=== PATIENT | female | born 1995 | race Caucasian/White ===

== ENCOUNTER 2023-12-03 02:25 | Emergency (ER) | payer OTHER ==
[~2023-12-03] VITALS: Ht 160 cm; Wt 62.0 kg
[2023-12-03 02:30] VITALS: O2SAT 99
[2023-12-03 02:36] VITALS: BP 120/77; PULSE 91; RESP 18; TEMP 98.5; O2SAT 100
[2023-12-03 03:35] LABS: CLARITY URINE CLEAR (CLEAR); COLOR URINE YELLOW (YELLOW); GLUCOSE URINE NEGATIVE (NEGATIVE); KETONES URINE NEGATIVE (NEGATIVE); LEUKOCYTE ESTERASE URINE NEGATIVE (NEGATIVE); NITRITE URINE NEGATIVE (NEGATIVE); OCCULT BLOOD URINE NEGATIVE (NEGATIVE); PH URINE 6.5 (4.5-8.0); PROTEIN URINE NEGATIVE (NEGATIVE); SPECIFIC GRAVITY URINE 1.012 (1.005-1.030); UROBILINOGEN URINE 0.2 E.U./dL (0.2-1.0)
[2023-12-03] MEDS ORDERED: CLOT45CR62 VG (04:12)
== END 2023-12-03 05:13 | disposition home or self-care (01) ==
LOC: ER 02:38
DX: N76.0 Acute vaginitis (principal)
CPT/HCPCS: 81003; 81025; 87210; 99284; Z7610